=== PATIENT | male | born 1970 | race Caucasian/White ===

== ENCOUNTER 2016-12-09 08:00 | Outpatient (CLI) | payer MEDICAID | END 2016-12-09 23:59 | DX: R41.844 Frontal lobe and executive function deficit (principal); Z13.228 Encounter for screening for other metabolic disorders; Z13.29 Encounter for screening for other suspected endocrine disorder; Z13.0 Encounter for screening for diseases of the blood and blood-forming organs and certain disorders involving the immune mechanism ==

== ENCOUNTER 2017-01-04 09:06 | Outpatient (CLI) | payer MEDICAID ==
[2017-01-04] MEDS ORDERED: IOPAMIDOL-300 100 ML VIAL IVP ONE (09:37)
--- NOTE | 2017-01-05 15:15 | CT Report ---
NONCONTRAST/CONTRAST ENHANCED CT SCAN OF THE HEAD: 01/04/2017 CLINICAL HISTORY: A 46-year-old male with signs and symptoms involving cognitive function. COMPARISON: None. TECHNIQUE: Noncontrast CT exam of the head was done at 5 x 5 mm intervals with axial, coronal and sagittal reconstructions. Patient received 100 mL of Isovue-330 as a contrast agent. CAT scan of the head was done following injection with axial, coronal and sagittal reconstructions obtained at 5 x 5 mm intervals. FINDINGS: Cerebral ventricles appear normal. No extra-axial fluid collections are seen. Noncontrast images demonstrate two rounded high density nodules in the superior-posterior aspect of the parietal lobe at the hodge-white matter junction. They lie adjacent to one another in a superior to inferior orientation by 4 mm. The more superiorly located high density nodule measures 7 mm. The inferiorly located nodule measures (02:35) . Contrast enhanced study shows multiple vessels extending through these nodules. These may represent arteries or early draining veins. Etiological considerations for these findings include two areas of focal hemorrhage related to an AV malformation or developmental venous anomaly versus a malignancy such as lymphoma or melanoma. Malignancies such as lymphoma and melanoma may present as high density lesions on noncontrast CTs. Recommend noncontrast/contrast enhanced MRI exam of the head for further evaluation. Slightly prominent suprasellar cistern is noted. No obvious abnormality is seen in and about the cavernous sinus or the cerebellopontine angle cistern. Cerebellum and brainstem appear normal. Bone windows appear normal. IMPRESSION: TWO 7 MM IN DIAMETER LESIONS ARE NOTED IN THE RIGHT SUPERIOR- POSTERIOR PARIETAL LOBE LYING ADJACENT TO ONE ANOTHER AND BEING ASSOCIATED WITH UNUSUAL VESSELS EXTENDING THROUGH THEM. ETIOLOGICAL CONSIDERATIONS TWO AREAS OF SMALL HEMORRHAGE IN ASSOCIATION WITH A VASCULAR ANOMALY SUCH AN AV MALFORMATION OR DEVELOPMENTAL VENOUS ANOMALY. OTHER POSSIBILITY IS MALIGNANCY SUCH LYMPHOMA OR MELANOMA. RECOMMEND NONCONTRAST/CONTRAST ENHANCED MRI OF THE HEAD FOR FURTHER EVALUATION. ADDENDUM: Dr. Casillas had the radiology department nurse give patient's healthcare provider, Holly Sousa, a hand-written report of patient's head CT including findings and recommendations. Also, this report was faxed to Holly Sousa's office. This was done on 01/05/2017 at 9:15 a.m. [facility]
== END 2017-01-04 09:07 | disposition home or self-care (01) ==
LOC: DI 09:06
PROVIDERS: ATTEND Nurse Practitioner Family
DX: G93.9 Disorder of brain, unspecified (principal)
CPT/HCPCS: 70470; Q9967

== ENCOUNTER 2017-01-18 09:36 | Outpatient (CLI) | payer MEDICAID ==
[2017-01-18] MEDS ORDERED: GADOBUTROL 7.5 MMOL/7.5 ML VIAL IVP ONE (10:48)
--- NOTE | 2017-01-18 15:51 | MRI Report ---
EXAM: MRI BRAIN WITHOUT AND WITH CONTRAST EXAM DATE: 01/18/2017 11:00 AM. CLINICAL HISTORY: Cognitive memory changes for 2 months. Difficulty focusing. COMPARISON: CT head 01/04/2017 TECHNIQUE: Multiplanar, multisequence T1-weighted and fluid-sensitive MR sequences of the brain were performed. Sequences optimized for routine evaluation. Other: None. Without and with IV Contrast: Yes . 7 mL Gadavist FINDINGS: Brain Volume: Normal for age. Parenchyma/Dura: No masses, infarcts, or acute hemorrhage. Two lesions with T2 hypointense rim are se en in the right parietal lobe with the more superior lesion measuring 11 mm (series 601 image 19), an d a second lesion slightly more inferiorly measuring 8 mm (series 601 image 17). There is associated susceptibility artifact on the GRE sequence. There is a third smaller lesion with similar signal meredith acteristics within the anterior right insular region measuring 4 mm (series 601 image 16), also demon strating susceptibility artifact. The postcontrast sequence demonstrates abnormal vascular enhancemen t, likely representing a developmental venous anomaly, within the right parietal lobe (for example se frannie 1102 image 70) associated with these 2 right parietal lesions. No other abnormal intracranial en hancement. Few, fewer than 5 punctate subcortical T2/FLAIR hyperintense white matter lesions are seen . Ventricles/Cisterns: Normal. No hydrocephalus. Sinuses: Normal. No sinusitis evident. Bones: Normal. Other: None. IMPRESSION: 1. Corresponding to the hyperdensities seen on the comparison CT performed on 01/04/2017, two right p arietal lesions are seen, measuring 11 mm and 8 mm, with imaging characteristics most consistent with cavernomas, as detailed above, with possible prior/remote intralesional bleeding. 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 2. There is a third lesion with similar signal characteristics within the right insular region measur ing 4 mm (series 601 image 16), also favored to represent a cavernoma. 3. No evidence of acute or subacute infarct, intracranial hemorrhage, mass effect, midline shift, or hydrocephalus. No other abnormal intracranial enhancement. 4. Few, fewer than 5 punctate white matter T2/FLAIR hyperintensities, nonspecific, and can be seen wi th the entire gamut of white matter conditions, including migraine headaches and as sequela of chroni c microangiopathy. This is likely of no clinical significance unless correlated with history of hyper tension/diabetes. It is likely unrelated to present symptomatology. [facility] Referring Provider Line: [phone] SITE ID: [id number]
== END 2017-01-18 09:37 | disposition home or self-care (01) ==
LOC: DI 09:36
PROVIDERS: ATTEND Nurse Practitioner Family
DX: G93.9 Disorder of brain, unspecified (principal)
CPT/HCPCS: 70553; A9585

== ENCOUNTER 2017-04-27 09:20 | Emergency (ER) | payer MEDICAID, OTHER ==
[2017-04-27] MEDS ORDERED: DEXAMETHASONE 10 MG/ML VIAL PO STA (11:34)
[2017-04-27] MEDS ORDERED: CHERRY SYRUP 10 ML UDC PO ONE (11:45)
[2017-04-27] MEDS ORDERED: DEXAMETHASONE 10 MG/ML VIAL ONE (11:45)
--- NOTE | 2017-04-27 12:06 | XRAY Preliminary Report ---
Exam: XR Hip w/Pelvis 2-3V RT IMPRESSION: Normal pelvis and hip radiography. [facility] SITE ID: [id number]
--- NOTE | 2017-04-27 12:09 | XRAY Report ---
EXAM: RIGHT HIP AND PELVIS RADIOGRAPHY EXAM DATE: 04/27/2017 11:53 AM. HISTORY: Trauma to illiac crest. COMPARISONS: None. TECHNIQUE: 1 view of the pelvis and 1 view of the hip. FINDINGS: Bones: Normal. No fracture or bone lesion. Joints: The bilateral hip, pubis symphysis, and sacroiliac joints are preserved. Soft Tissues: Normal. No soft tissue swelling. IMPRESSION: Normal pelvis and hip radiography. [facility] Referring Provider Line: [phone] SITE ID: [id number]
[2017-04-27 12:24] VITALS: BP 123/76
--- NOTE | 2017-04-27 12:54 | ED Physician Documentation ---
PD HPI TRUNK INJURY - Stated complaint Stated Complaint: RT HIP PX - Chief complaint Chief Complaint: Ext Problem - History obtained from History obtained from: Patient - History of Present Illness Location: Lower abdomen, Right abdomen Type of injury: Blunt / blow Timing - onset: How many months ago (5) Timing - duration: Months (5) Timing - details: Abrupt onset, Still present, Waxing and waning Quality: Pain, Spasm, Sharp Improved by: Rest, Immobilization Worsened by: Moving, Palpating Associated symtptoms: No: Weakness, Numbness, Tingling Contributing factors: No: Anticoagulated Where injury occured: Work Similar symptoms before: Has not had sx before Recently seen: Not recently seen - Additional information Additional information: 46-year-old male was kicked by horse in his right hip. This occurred in November of this year. He brings in a photograph showing the bruise above the superior iliac crest. He states that he has had pain since this occurred and this was improving and over the past 4 days he has had a marked exacerbation of the pain to where he is uncomfortable and unable to sleep at night. 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 Review of Systems Constitutional: denies: Fever, Chills Nose: denies: Congestion Throat: denies: Sore throat Cardiac: denies: Chest pain / pressure Respiratory: denies: Cough GI: denies: Abdominal Pain, Vomiting : denies: Dysuria, Frequency Skin: denies: Rash Musculoskeletal: denies: Neck pain, Back pain Neurologic: denies: Generalized weakness, Focal weakness PD PAST MEDICAL HISTORY - Past Medical History Past Medical History: Yes Neuro: Other Other Past Medical History: Brain tumor - Past Surgical History Past Surgical History: No - Present Medications Home Medications: Ambulatory Orders Medication Instructions Recorded Confirmed traMADol [Ultram] 50 - 100 mg PO Q4-6H PRN #20 tablet 04/27/17 - Allergies Allergies/Adverse Reactions: Allergies Allergy/AdvReac Type Severity Reaction Status Date / Time No Known Drug Allergies Allergy Verified 04/27/17 09:34 - Social History Does the pt smoke?: No Smoking Status: Never smoker Does the pt drink ETOH?: Yes Does the pt have substance abuse?: No - Immunizations Immunizations are current?: No - POLST Patient has POLST: No PD ED PE NORMAL - Vitals Vital signs reviewed: Yes (normal ) - General General: No acute distress, Well developed/nourished - HEENT HEENT: Atraumatic, PERRL, EOMI - Respiratory Respiratory: No respiratory distress - Derm Derm: Normal color, Warm and dry, No rash - Extremities Extremities: No deformity, No edema, Other (There is no residual bruise and mild tenderness to palpation above the right illiac crest) - Neuro Neuro: Alert and oriented X 3, No motor deficit, No sensory deficit, Normal speech - Psych Psych: Normal mood, Normal affect Results - Vitals Vitals: Vital Signs - 24 hr 04/27/17 04/27/17 09:32 12:23 Temperature 36.5 C 36.9 C Heart Rate 80 70 Respiratory 14 16 Rate Blood Pressure 118/69 123/76 O2 Saturation 100 97 Oxygen O2 Source Room air - Rads (name of study) Hip with pelvis right Radiology: Prelim report reviewed (Impression: Normal pelvis and hip radiography.), EMP read indepedently, See rad report PD MEDICAL DECISION MAKING - ED course Complexity details: reviewed results, re-evaluated patient, considered differential, d/w patient ED course: 46-year-old male kicked by horse in his side4 months ago has developed an acute exacerbation of his pain and he appears uncomfortable. Here in the emergency department he is administered dexamethasone 10 mg and has some improvement while he is waiting for his x-rays. We did x-ray the area at his request and there is no evidence of fracture. Departure - Departure Disposition: 01 Home, Self Care Clinical Impression: Contusion of left hip region Condition: Stable Instructions: ED Contusion Hip Follow-Up: Holly Sousa ARNP [Primary Care Provider] - Prescriptions: traMADol [Ultram] 50 - 100 mg PO Q4-6H PRN #20 tablet PRN Reason: Pain Discharge Date/Time: 04/27/17 12:58
== END 2017-04-27 12:58 | disposition home or self-care (01) ==
LOC: ED 09:20
DX: S70.01XA Contusion of right hip, initial encounter (principal); W55.12XA Struck by horse, initial encounter; M25.551 Pain in right hip
CPT/HCPCS: 73502; 99282; 99284; A9270

== ENCOUNTER 2018-07-01 17:21 | Emergency (ER) | payer MEDICAID ==
[2018-07-01 17:28] VITALS: BP 141/81
--- NOTE | 2018-07-01 18:04 | ED Physician Documentation ---
PD HPI SKIN - Stated complaint Stated Complaint: R ARM INJ - Chief complaint Chief Complaint: Wound - History obtained from History obtained from: Patient - History of Present Illness Timing - onset: Other (He was bitten by a horse 2 weeks ago. It did not break the skin. Over the last 5 days he developed swelling there. 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, top right." - Past Surgical History Past Surgical History: No - Present Medications Home Medications: Ambulatory Orders Medication Instructions Recorded Confirmed Naproxen Sodium [Aleve] 220 mg PO 07/01/18 Sulfamethoxazole/Trimethoprim 1 each PO BID #14 tablet 07/01/18 [Sulfamethoxazole-Tmp Ds Tablet] - Allergies Allergies/Adverse Reactions: Allergies Allergy/AdvReac Type Severity Reaction Status Date / Time No Known Drug Allergies Allergy Verified 07/01/18 17:27 - Social History Does the pt smoke?: No Smoking Status: Never smoker Does the pt drink ETOH?: Yes Does the pt have substance abuse?: No - Immunizations Immunizations are current?: Yes - POLST Patient has POLST: No PD ED PE NORMAL - Vitals Vital signs reviewed: Yes - General General: Alert and oriented X 3, No acute distress - Extremities Extremities: Other (There is a 2-3 cm fluctuant mass over the distal lateral bicep with good range of motion. No significant cellulitis at this juncture.) - Neuro Neuro: Alert and oriented X 3, Normal speech Results - Vitals Vitals: Vital Signs - 24 hr 07/01/18 17:24 Temperature 36.7 C Heart Rate 79 Respiratory 18 Rate Blood Pressure 141/81 H O2 Saturation 99 Oxygen O2 Source Room air Procedures - Abscess I&D (location) R arm Preparation: Confirmed with ultrasound (Definitely a fluid collection on ultrasound.), Chlorhexadine, Lidocaine 1% Incision: Incised with scalpel, Purulent drainage, Loculations broken, Culture obtained. No: Packed Other: Pt tolerated well, Dressing applied, Antibiotic prescribed Departure - Departure Disposition: 01 Home, Self Care Clinical Impression: Abscess Condition: Good Record reviewed to determine appropriate education?: Yes Instructions: ED Abscess IandD Prescriptions: Sulfamethoxazole/Trimethoprim [Sulfamethoxazole-Tmp Ds Tablet] 1 each PO BID #14 tablet Comments: Continue the antibiotic you were prescribed. Add to it the new antibiotic. We are performing a wound culture, the results should be done in 48-72 hours. If antibiotic change is necessary we will call you. Return if worse in the me antime, especially if you develop increased pain, fevers, cannot keep down the medication. Otherwise follow-up with your physician in approximately 2-3 days. Your blood pressure was elevated today on check into the emergency department. This does not mean that you have hypertension, it is a common phenomenon to come to the emergency department and have elevated blood pressure. I recommend that you see your primary care physician within the week to have it rechecked when you are feeling better.
[2018-07-01] MEDS ORDERED: SULFAMETH/TRIMETH DS 800/160 MG TABLET PO STA (18:05)
== END 2018-07-01 18:12 | disposition home or self-care (01) ==
LOC: ED 17:21
DX: L02.413 Cutaneous abscess of right upper limb (principal); R03.0 Elevated blood-pressure reading, without diagnosis of hypertension
CPT/HCPCS: 10060; 87070; 87205; 99283; A9270